=== PATIENT | female | born 1975 | race Caucasian/White ===

== ENCOUNTER → 2017-03-04 | Outpatient (CLI) | payer OTHER ==
[2017-03-04 17:23] LABS: BASO % 0.6 %; BASO ABS # 0.03 K/uL (0-0.2); COMPLETE YES; EOS % 1.8 %; HEMATOCRIT 40.3 % (37-47); IG% 0.2 %; LYMPH % 30.6 %; LYMPH ABS # 1.66 K/uL (1.2-3.4); MEAN CELL VOLUME 101.5 fL (80-100); MEAN CORPUSCULAR HEMOGLOBIN 33.2 pg (25-34); MEAN CORPUSCULAR HGB CONC 32.8 g/dl (32-36); MEAN PLATELET VOLUME 10.2 fL (7.4-10.4); MONO % 9.2 %; NEUT % 57.6 %; PLATELET COUNT 203 K/uL (130-400); RED BLOOD COUNT 3.97 M/uL (4.2-5.4); WHITE BLOOD COUNT 5.43 K/uL (4.8-10.8)
[2017-03-04 17:40] LABS: AMYLASE 40 U/L (25-115); BLOOD UREA NITROGEN 11 mg/dl (7-18); BUN/CREATININE RATIO 13.8 (10-20); CALCIUM 8.8 mg/dl (8.5-10.1); CARBON DIOXIDE 29 mmol/L (21-32); CHLORIDE 107 mmol/L (98-107); CREATININE 0.83 mg/dl (0.60-1.20); GLUCOSE 79 mg/dl (70-99); POTASSIUM 4.1 mmol/L (3.5-5.1); SODIUM 140 mmol/L (136-145)
[2017-03-04 17:43] LABS: ALB/GLOB RATIO 1.2 (0.9-2); ALKALINE PHOSPHATASE 38 U/L (45-117); ALT/SGPT 22 U/L (12-78); AST/SGOT 13 U/L (15-37)
== END | disposition home or self-care (01) ==
LOC: C.LABPVFM 14:11
PROVIDERS: ATTEND Nurse Practitioner
DX: R10.13 Epigastric pain (principal)

== ENCOUNTER → 2017-03-09 | Outpatient (CLI) | payer OTHER ==
--- NOTE | 2017-03-09 11:06 | DIAGNOSTIC IMAGING REPORT ---
KUB HISTORY: Epigastric abdominal pain. COMPARISON: None. FINDINGS: The bowel gas pattern is unremarkable. There are no dilated loops of small bowel to suggest an obstruction. No renal calculi. No ureteral calculi. No pneumoperitoneum or pneumatosis. Moderate well-formed stool seen within the colon and rectum. IMPRESSION: No evidence for bowel obstruction. Moderate well-formed stool seen within the colon and rectum. Electronically signed by: Lee Varma M.D. 03/09/2017 11:05 AM Dictated Date/Time: 03/09/2017 11:03 AM
== END | disposition home or self-care (01) ==
LOC: C.RADPV 10:29
PROVIDERS: ATTEND Nurse Practitioner
DX: R10.13 Epigastric pain (principal)

== ENCOUNTER → 2017-03-25 | Outpatient (CLI) | payer OTHER ==
--- NOTE | 2017-03-25 11:08 | DIAGNOSTIC IMAGING REPORT ---
ABDOMEN FOR HERNIA CLINICAL HISTORY: 41 years-old Female presenting with epigastric abdominal pain.. TECHNIQUE: Real-time grayscale ultrasound imaging of the left upper quadrant at the site of clinical concern was performed. COMPARISON: Plain radiograph of the abdomen from 03/09/2017. FINDINGS: No focal abnormality in the extraperitoneal soft tissues of the anterior abdominal wall the left upper quadrant. No focal fluid collection or herniation is appreciated. IMPRESSION: 1. No significant abnormality of the superficial soft tissues of the left upper quadrant. Electronically signed by: Dylon John M.D. 03/25/2017 11:07 AM Dictated Date/Time: 03/25/2017 11:06 AM
== END | disposition home or self-care (01) ==
LOC: C.ULTR 10:15
PROVIDERS: ATTEND Nurse Practitioner Family
DX: R10.13 Epigastric pain (principal)